=== PATIENT | male | born 1990 | race Caucasian/White ===

== ENCOUNTER 2016-10-03 14:19 | Emergency (ER) | payer OTHER ==
[~2016-10-03] VITALS: Ht 175.3 cm; Wt 77.7 kg
[2016-10-03 16:46] LABS: BASOPHIL % 0.4 % (0-2); PLATELET COUNT 270 x10^3mcL (130-400); RED CELL DISTRIBUTION WIDTH 13.2 % (11.5-14.5)
[2016-10-03 16:53] LABS: CALCIUM 9.1 mg/dL (8.5-10.1); CARBON DIOXIDE 27.3 mmol/L (21-32); CHLORIDE SERUM 104 mmol/L (98-107); GFR1 > 60 mL/min; GLUCOSE SERUM 117 mg/dL (74-106); POTASSIUM SERUM 3.5 mmol/L (3.5-5.1); SODIUM SERUM 143 mmol/L (136-145)
[2016-10-03 16:57] LABS: ALBUMIN 4.6 g/dL (3.4-5.0); ALKALINE PHOSPHATASE 59 U/L (46-116); ALT/SGPT 25 U/L (16-63); AST/SGOT 19 U/L (15-37); BILIRUBIN TOTAL 0.67 mg/dL (0.20-1.00); TOTAL PROTEIN, SERUM 7.7 g/dL (6.4-8.2)
[2016-10-03 18:34] VITALS: BP 139/69
== END 2016-10-03 18:34 | disposition home or self-care (01) ==
LOC: ED 14:19
PROVIDERS: Specialist
DX: J45.901 Unspecified asthma with (acute) exacerbation (principal)
CPT/HCPCS: 83880; J0171; J3475; J7030; J7512; J7613; J7644; Q0092

== ENCOUNTER 2017-04-23 17:13 | Emergency (ER) | payer OTHER ==
[~2017-04-23] VITALS: Ht 180.3 cm; Wt 73.0 kg
[2017-04-23 18:27] VITALS: BP 140/79
== END 2017-04-23 18:27 | disposition home or self-care (01) ==
LOC: ED 17:13
DX: J45.901 Unspecified asthma with (acute) exacerbation (principal); Z91.048 Other nonmedicinal substance allergy status
CPT/HCPCS: J2930; J7613; J7644

== ENCOUNTER 2017-07-25 23:20 | Emergency (ER) | payer OTHER ==
[~2017-07-25] VITALS: Ht 180.3 cm; Wt 72.1 kg
[2017-07-25 23:25] VITALS: BP 162/119; Ht 180.3 cm; Wt 72.1 kg
== END 2017-07-26 00:38 | disposition home or self-care (01) ==
LOC: ED 23:20
DX: J45.901 Unspecified asthma with (acute) exacerbation (principal)
CPT/HCPCS: J7512; J7620

== ENCOUNTER 2019-05-09 14:26 | Emergency (ER) | payer OTHER ==
[~2019-05-09] VITALS: Ht 180.3 cm; Wt 67.1 kg
[2019-05-09 14:34] VITALS: Ht 180.3 cm; Wt 67.1 kg
[2019-05-09 17:55] VITALS: BP 125/74
== END 2019-05-09 17:55 | disposition home or self-care (01) ==
LOC: ED 14:26
DX: K59.00 Constipation, unspecified (principal); J45.909 Unspecified asthma, uncomplicated